=== PATIENT | male | born 1980 | race Caucasian/White ===

== ENCOUNTER → 2017-05-11 | Outpatient (CLI) | payer OTHER ==
[~2017-05-11] MED LIST: BACTRIM DS 8001 TA1 PO; BACTRIM DS 8001 TAB PO; CEPHALEXIN500 MG PO; DARVOCET-N 1001 EACH PO; LORTAB 5/500 501 TAB PO; NOMEDS *; PEN-VK500 MG PO; SEPTRA DS 800 M1 TAB PO
--- NOTE | 2017-05-12 05:23 | RADIOLOGY REPORT PS360 ---
[id number] VIEWS HISTORY: Right shoulder pain PAIN W/O INJURY ORDERING PHYSICIAN: Vishal Jain MD PATIENT AGE: 36 years COMPARISON: None FINDINGS: No fracture or dislocation. No lytic or blastic change. There is normal mineralization. The joint spaces are well-preserved. No significant degenerative/arthritic changes. No erosive changes evident. IMPRESSION: Negative, no acute finding
== END ==
LOC: RAD 22:38
DX: M25.511 Pain in right shoulder (principal)